=== PATIENT | male | born 1940 | race Caucasian/White ===

== ENCOUNTER → 2017-09-27 | Outpatient (CLI) | payer OTHER ==
[~2017-09-27] MED LIST: ATEN50 PO; Augmentin 875-1 EACH PO; HYDACE5 PO; LEVE500 PO; LORA1 PO; META800 PO; NAPR500 PO; OXYACE5T PO
[2017-09-27 16:51] LABS: BASOPHILS ABSOLUTE AUTO 0.02 K/mm3 (0.00-0.23); BASOPHILS PERCENT AUTO 0 % (0-2); EOSINOPHILS ABSOLUTE AUTO 0.09 K/mm3 (0.00-0.68); EOSINOPHILS PERCENT AUTO 1 % (0-6); Hemoglobin 17.3 g/dL (13.5-17.5); IMMATURE GRAN ABSOLUTE AUTO 0.02 K/mm3 (0.00-0.10); IMMATURE GRAN PERCENT AUTO 0 % (0-1); LYMPHOCYTES ABSOLUTE AUTO 1.05 K/mm3 (0.84-5.20); LYMPHOCYTES PERCENT AUTO 16 % (21-46); MONOCYTES ABSOLUTE AUTO 0.48 K/mm3 (0.16-1.47); MONOCYTES PERCENT AUTO 7 % (4-13); Mean Corpuscular HGB Conc 34.6 g/dL (31.5-36.5); Mean Corpuscular Volume 92 fL (80-100); Mean Platelet Volume 10.6 fL (9.1-12.4); NEUTROPHILS ABSOLUTE AUTO 4.82 K/mm3 (1.96-9.15); NEUTROPHILS PERCENT AUTO 74 % (41-73); Platelet Count 177 K/mm3 (150-400); RDW Standard Deviation 43.5 fL (35.1-46.3); Red Blood Cell Count 5.41 M/mm3 (4.30-5.90); White Blood Cell Count 6.48 K/mm3 (4.00-11.30)
[2017-09-27 17:12] LABS: Alanine Aminotransfer (ALT/SGP 20 U/L (12-78); Albumin, Blood 3.5 g/dL (3.4-5.0); Albumin/Globulin Ratio 0.9 (0.8-1.8); Alk Phos 63 U/L (50-136); Anion Gap 7 mmol/L (6-16); Aspartate Aminotrans (AST/SGOT 16 U/L (12-37); Bilirubin, Total 0.7 mg/dL (0.1-1.0); Blood Urea Nitrogen 12 mg/dL (8-24); CO2, Blood 29 mmol/L (21-32); Calcium, Blood 9.1 mg/dL (8.5-10.1); Chloride, Blood 104 mmol/L (98-108); Creatinine, Blood 0.86 mg/dL (0.60-1.20); Globulin, Blood 3.7 g/dL (2.2-4.0); Glomerular Filtration Rate >60 (60-); Glucose, Blood 91 mg/dL (70-99); Potassium, Blood 3.9 mmol/L (3.5-5.5); Sodium, Blood 140 mmol/L (136-145); Total Protein, Blood 7.2 g/dL (6.4-8.2)
== END ==
LOC: LAB 16:45
PROVIDERS: Physician Assistant
DX: R53.83 Other fatigue (principal)
CPT/HCPCS: 80053; 85025

== ENCOUNTER 2017-10-10 19:06 | Observation (INO) | payer OTHER ==
[~2017-10-10] VITALS: Ht 162.6 cm; Wt 62.0 kg
[~2017-10-10 19:06] MED LIST changes: -Augmentin 875-1 EACH PO; -LEVE500 PO
[2017-10-10 20:20] LABS: BASOPHILS ABSOLUTE AUTO 0.03 K/mm3 (0.00-0.23); BASOPHILS PERCENT AUTO 0 % (0-2); EOSINOPHILS ABSOLUTE AUTO 0.05 K/mm3 (0.00-0.68); EOSINOPHILS PERCENT AUTO 1 % (0-6); Hematocrit 47.1 % (37.0-53.0); Hemoglobin 15.8 g/dL (13.5-17.5); IMMATURE GRAN ABSOLUTE AUTO 0.03 K/mm3 (0.00-0.10); IMMATURE GRAN PERCENT AUTO 0 % (0-1); LYMPHOCYTES ABSOLUTE AUTO 0.84 K/mm3 (0.84-5.20); LYMPHOCYTES PERCENT AUTO 12 % (21-46); MONOCYTES ABSOLUTE AUTO 0.72 K/mm3 (0.16-1.47); MONOCYTES PERCENT AUTO 10 % (4-13); Mean Corpuscular HGB 30.7 pg (26.0-34.0); Mean Corpuscular HGB Conc 33.5 g/dL (31.5-36.5); Mean Corpuscular Volume 92 fL (80-100); Mean Platelet Volume 10.1 fL (9.1-12.4); NEUTROPHILS PERCENT AUTO 76 % (41-73); Platelet Count 166 K/mm3 (150-400); RDW Coefficient Variation 12.4 % (11.7-14.2); RDW Standard Deviation 41.9 fL (35.1-46.3); Red Blood Cell Count 5.14 M/mm3 (4.30-5.90); White Blood Cell Count 6.97 K/mm3 (4.00-11.30)
[2017-10-10] MEDS ORDERED: Augmentin 875-1 EACH PO (20:23)
[2017-10-10 20:43] LABS: Alanine Aminotransfer (ALT/SGP 23 U/L (12-78); Albumin/Globulin Ratio 0.8 (0.8-1.8); Alk Phos 69 U/L (50-136); Anion Gap 4 mmol/L (6-16); Aspartate Aminotrans (AST/SGOT 22 U/L (12-37); Bilirubin, Total 0.6 mg/dL (0.1-1.0); Blood Urea Nitrogen 14 mg/dL (8-24); Bun/Creatinine Ratio 17.4 (12.0-20.0); CO2, Blood 31 mmol/L (21-32); Calcium, Blood 8.6 mg/dL (8.5-10.1); Chloride, Blood 106 mmol/L (98-108); Creatinine, Blood 0.81 mg/dL (0.60-1.20); Ethanol (Alcohol), Blood, Med <3 mg/dL; Globulin, Blood 3.7 g/dL (2.2-4.0); Glomerular Filtration Rate >60 (60-); Glucose, Blood 93 mg/dL (70-99); Magnesium, Blood 2.2 mg/dL (1.6-2.4); Potassium, Blood 4.4 mmol/L (3.5-5.5); Sodium, Blood 141 mmol/L (136-145); Total Protein, Blood 6.7 g/dL (6.4-8.2); Troponin I <0.015 ng/mL (0.000-0.040)
[2017-10-11 06:48] LABS: BASOPHILS ABSOLUTE AUTO 0.02 K/mm3 (0.00-0.23); BASOPHILS PERCENT AUTO 0 % (0-2); EOSINOPHILS ABSOLUTE AUTO 0.08 K/mm3 (0.00-0.68); EOSINOPHILS PERCENT AUTO 1 % (0-6); Hematocrit 43.5 % (37.0-53.0); Hemoglobin 14.6 g/dL (13.5-17.5); IMMATURE GRAN ABSOLUTE AUTO 0.02 K/mm3 (0.00-0.10); IMMATURE GRAN PERCENT AUTO 0 % (0-1); LYMPHOCYTES ABSOLUTE AUTO 0.92 K/mm3 (0.84-5.20); LYMPHOCYTES PERCENT AUTO 16 % (21-46); MONOCYTES ABSOLUTE AUTO 0.68 K/mm3 (0.16-1.47); MONOCYTES PERCENT AUTO 12 % (4-13); Mean Corpuscular HGB 30.9 pg (26.0-34.0); Mean Corpuscular HGB Conc 33.6 g/dL (31.5-36.5); Mean Corpuscular Volume 92 fL (80-100); Mean Platelet Volume 10.3 fL (9.1-12.4); NEUTROPHILS ABSOLUTE AUTO 4.21 K/mm3 (1.96-9.15); NEUTROPHILS PERCENT AUTO 71 % (41-73); Platelet Count 161 K/mm3 (150-400); RDW Coefficient Variation 12.4 % (11.7-14.2); RDW Standard Deviation 42.2 fL (35.1-46.3); Red Blood Cell Count 4.72 M/mm3 (4.30-5.90); White Blood Cell Count 5.93 K/mm3 (4.00-11.30)
[2017-10-11 07:15] LABS: Alanine Aminotransfer (ALT/SGP 18 U/L (12-78); Albumin, Blood 2.6 g/dL (3.4-5.0); Albumin/Globulin Ratio 0.8 (0.8-1.8); Alk Phos 57 U/L (50-136); Anion Gap 5 mmol/L (6-16); Aspartate Aminotrans (AST/SGOT 13 U/L (12-37); Bilirubin, Total 0.5 mg/dL (0.1-1.0); Blood Urea Nitrogen 16 mg/dL (8-24); Bun/Creatinine Ratio 17.6 (12.0-20.0); CO2, Blood 30 mmol/L (21-32); Calcium, Blood 8.6 mg/dL (8.5-10.1); Chloride, Blood 108 mmol/L (98-108); Creatinine, Blood 0.91 mg/dL (0.60-1.20); Globulin, Blood 3.2 g/dL (2.2-4.0); Glomerular Filtration Rate >60 (60-); Glucose, Blood 93 mg/dL (70-99); Potassium, Blood 3.6 mmol/L (3.5-5.5); Sodium, Blood 143 mmol/L (136-145); Total Protein, Blood 5.8 g/dL (6.4-8.2)
[2017-10-11 13:58] LABS: Source, Urine Clean Catch
[2017-10-11 14:20] LABS: Appearance, Urine Clear (Clear); Bilirubin, Urine Neg (Neg); Blood, Urine Neg (Neg); Color, Urine Yellow (P-Yellow); Glucose Qualitative, Urine Neg (Neg); Ketones, Urine Neg (Neg); Leukocyte Esterase, Urine 1+ (Neg); Nitrite, Urine Neg (Neg); Protein, Urine Neg (Neg); Urobilinogen, Urine NORM (Normal); pH, Urine 6.5 (5.0-8.0)
[2017-10-11 14:35] LABS: Bacteria Not Seen /hpf; Red Blood Cells, Urine Not Seen /hpf (0-2); Squamous Epithelial Cells Rare /hpf (Few); White Blood Cells, Urine 0-2 /hpf (0-5)
[2017-10-11 15:18] LABS: U Amphetamine Screen Not Detected; U Barbituate Screen Not Detected; U Benzodiazapine Screen DETECTED; U Buprenorphine Screen Not Detected; U Cannabinoids Screen Not Detected; U Cocaine Screen Not Detected; U Methadone Screen Not Detected; U Methamphetamine Screen Not Detected; U Opiates Screen Not Detected; U Oxycodone Screen Not Detected; U Phencyclidine Screen Not Detected; U Propoxyphene Screen Not Detected
[2017-10-12] MEDS ORDERED: LEVE500 PO (12:28)
== END 2017-10-12 13:45 | disposition home or self-care (01) ==
LOC: ER 19:06 → MEDS 19:07 → ER 21:49 → MEDS 21:49 → ER 10-11 13:40 → MEDS 10-11 14:13 → ENPENDDIS 10-12 11:00 → MEDS 10-12 13:45
PROVIDERS: Emergency Medicine; Internal Medicine
DX: F10.239 Alcohol dependence with withdrawal, unspecified (principal); G40.501 Epileptic seizures related to external causes, not intractable, with status epilepticus; I10 Essential (primary) hypertension; K70.10 Alcoholic hepatitis without ascites; Z79.01 Long term (current) use of anticoagulants; Z87.891 Personal history of nicotine dependence
CPT/HCPCS: 36415; 70450; 71046; 80048; 80053; 81001; 83605; 83735; 84484; 85025; 87086; 93005; 93010; 96365; 96372; 97116; 97162; 99285; G0378; G0480; G8978; G8979; J1650; J1953; J2060; J7030

== ENCOUNTER 2018-09-24 15:28 | Inpatient (IN) | payer MEDICARE ==
[~2018-09-24] VITALS: Ht 162.6 cm; Wt 65.0 kg
[~2018-09-24 15:28] MED LIST changes: -ASPI81CH PO; -ATOR80 PO; -CLOP75 PO; -LISI5 PO; -METO25ER PO; -NITR.4SL SL
[2018-09-24] MEDS ORDERED: LEVE500 PO (17:01)
[2018-09-24 20:10] LABS: International Normalized Ratio 1.07
--- NOTE | 2018-09-24 21:25 | NUR ---
ASSUMED CARE PATIENT ARRIVED FROM ER VIA GURNEY AND AMBULATED TO PCU UNIT BED. PATIENTS PANTS REMOVED BY PATIENT AND SMELLED HEAVILY OF URINE- ALSO NOTED THAT PATIENTS WHITE UNDIES URINE STAINED. PATIENT LABILE, SMILING ONE MINUTE AND THEN UPSET ABOUT ADMIT QUESTIONS THE NEXTS. PATIENT VERBALIZES THAT HE IS IN THE HOSPITAL BECAUSE HE DOES NOT FEEL WELL - PATIENT IS NONE SPECIFIC ABOUT HIS HEALTH HISTORY AND CURRENT MEDICATIONS AND STATES THAT HE DOES NOT TAKE ANY MEDICATIONS DAILY. PATIENT DENIES ANY DRUG OR ALCOHOL USE AT THIS TIME AND STATES THE HE QUITE AWHILE AGO. PATIENT EDUCATED AND ETOH WITHDRAWL S/SX AND PATIENT DENIES ANY CONCERN. VSS. NO ACUTE DISTRESS NOTED. PATIENT TOOK ORAL MEDICATIONS PER EMAR WELL. WILL CONTINUE TO MONITOR.
[2018-09-25 01:30] LABS: Source, Urine Clean Catch
[2018-09-25 01:41] LABS: Blood, Urine Neg (Neg); Glucose Qualitative, Urine Neg (Neg); Ketones, Urine 4+ (Neg); Leukocyte Esterase, Urine 1+ (Neg); Nitrite, Urine Neg (Neg); Protein, Urine 1+ (Neg); Specific Gravity, Urine 1.025 (1.003-1.022); Urobilinogen, Urine 2+ (Normal)
[2018-09-25 01:46] LABS: Bilirubin, Urine 1+ (Neg); Color, Urine Amber (P-Yellow)
[2018-09-25 01:47] LABS: Appearance, Urine Hazy (Clear); Red Blood Cells, Urine Not Seen /hpf (0-2)
[2018-09-25 01:48] LABS: Amorphous Light (0-Heavy); Bacteria Few /hpf; Mucus Mod (0-Heavy); Squamous Epithelial Cells Rare /hpf (Few)
[2018-09-25 02:27] LABS: Hematocrit 31.4 % (37.0-53.0); Hemoglobin 10.2 g/dL (13.5-17.5); Mean Corpuscular HGB 29.5 pg (26.0-34.0); Mean Corpuscular HGB Conc 32.5 g/dL (31.5-36.5); Mean Corpuscular Volume 91 fL (80-100); Mean Platelet Volume 10.3 fL (9.1-12.4); Platelet Count 222 K/mm3 (150-400); RDW Coefficient Variation 13.6 % (11.7-14.2); RDW Standard Deviation 44.8 fL (35.1-46.3); Red Blood Cell Count 3.46 M/mm3 (4.30-5.90); White Blood Cell Count 7.12 K/mm3 (4.00-11.30)
[2018-09-25 02:31] LABS: Anion Gap 7 mmol/L (6-16); Blood Urea Nitrogen 21 mg/dL (8-24); Bun/Creatinine Ratio 24.3 (12.0-20.0); CO2, Blood 27 mmol/L (21-32); Chloride, Blood 106 mmol/L (98-108); Creatinine, Blood 0.86 mg/dL (0.60-1.20); Glomerular Filtration Rate >60 (60-); Glucose, Blood 87 mg/dL (70-99); Potassium, Blood 3.3 mmol/L (3.5-5.5); Sodium, Blood 140 mmol/L (136-145)
--- NOTE | 2018-09-25 05:34 | NUR ---
PCU NOC SHIFT SUMMARY PATIENT ALERT AND ORIENTED TO SELF AND LOCATION T/O SHIFT. PATIENT REMAINS CONFUSED AT TIMES TO CARE AND REASONING HE IS AT HOSPITAL. PATIENT SLEPT WELL T/O SHIFT AFTER ARRIVING FROM ER. RESP E/U ON ROOM AIR AND PATIENT REMAINS IN A FLUTTER IN THE 80'S - NO CHANGE PER BEVEL OPERATOR (ORIGINALLY THOUGHT NSR BUT IT HAS BEEN FLUTTER T/O SHIFT). NO ACUTE CHANGES NOTED, VSS. CALL LIGHT W/I REACH AND BED ALARM ON. DENIES ANY CHEST PAIN. HEPARIN GTT CONTINUES TO INFUSE PER EMAR AND PHARM. WILL CONTINUE TO MONITOR AND REPORT TO DAYSHIFT RN.
--- NOTE | 2018-09-25 07:17 | NUR ---
AM EKG - WITH CHANGES FROM ER EKG 8 HOURS AGO - AM EKG PERFORMED - NOTED ST CHANGES IN EKG AND EKG STATED 'STEMI'. DISCUSSED FINDINGS WITH WIND FARM ENGINEER EDU, ROTARY DRILLER HELPER LILLY WAS IN ICU SO SHOWED OLD EKG AND NEW EKG TO MD - SHE STATED THAT THERE WERE INDEED EKG CHANGES IN MULTIPLE LEADS AND THAT PROTOCOL WAS TO CALL THE INTERVENTIONALIST - STEMI MD ENTRY LEVEL ACCOUNT REPRESENTATIVE. THIS RN CALLED MD NDIAYE'S (STEMI CARDIO ENTRY LEVEL ACCOUNT REPRESENTATIVE) CELL PHONE, SHE STATED ASK FOR EKG'S TO BE TEXT TO HER (EKG TEXT TO HER). NO ORDERS GIVEN - PROVIDER NOTIFED THAT PATIENTS TROPONIN WAS AT 13.5 AND PATIENT WAS PAINFUL ALL OVER WITH NO SPECIFIC LOCATION DUE TO MENTATION AND ETOH HISTORY.
--- NOTE | 2018-09-25 07:23 | NUR ---
ARIEL OXYGEN, NEW IV AND NEW VITALS OBTAINED BY LEATHER TACKER. REGISTERED RADIOGRAPHER ALREADY IN PLACE.
--- NOTE | 2018-09-25 09:29 | NUR ---
ECHOCARDIOGRAM COMPLETED
--- NOTE | 2018-09-25 18:43 | NUR ---
END OF SHIFT PT HAS HAD NO CHANGES TO THE ASSESSMENT, PLAN IS TO MED MANGES AND PLACE IN SNIFF, PT IS FOLLOWING COMMANDS BUT IS DISTANCE
[2018-09-26 04:21] LABS: BASOPHILS ABSOLUTE AUTO 0.01 K/mm3 (0.00-0.23); BASOPHILS PERCENT AUTO 0 % (0-2); EOSINOPHILS ABSOLUTE AUTO 0.06 K/mm3 (0.00-0.68); EOSINOPHILS PERCENT AUTO 1 % (0-6); Hemoglobin 11.2 g/dL (13.5-17.5); IMMATURE GRAN ABSOLUTE AUTO 0.02 K/mm3 (0.00-0.10); IMMATURE GRAN PERCENT AUTO 0 % (0-1); LYMPHOCYTES PERCENT AUTO 13 % (21-46); MONOCYTES ABSOLUTE AUTO 0.53 K/mm3 (0.16-1.47); MONOCYTES PERCENT AUTO 9 % (4-13); Mean Corpuscular HGB 29.2 pg (26.0-34.0); Mean Corpuscular Volume 91 fL (80-100); Mean Platelet Volume 10.1 fL (9.1-12.4); NEUTROPHILS ABSOLUTE AUTO 4.53 K/mm3 (1.96-9.15); NEUTROPHILS PERCENT AUTO 76 % (41-73); Platelet Count 257 K/mm3 (150-400); RDW Coefficient Variation 13.5 % (11.7-14.2); RDW Standard Deviation 45.6 fL (35.1-46.3); Red Blood Cell Count 3.84 M/mm3 (4.30-5.90); White Blood Cell Count 5.95 K/mm3 (4.00-11.30)
[2018-09-26 04:48] LABS: Anion Gap 6 mmol/L (6-16); Blood Urea Nitrogen 19 mg/dL (8-24); Bun/Creatinine Ratio 22.7 (12.0-20.0); CO2, Blood 27 mmol/L (21-32); Calcium, Blood 8.4 mg/dL (8.5-10.1); Chloride, Blood 105 mmol/L (98-108); Creatinine, Blood 0.84 mg/dL (0.60-1.20); Glomerular Filtration Rate >60 (60-); Glucose, Blood 95 mg/dL (70-99); Potassium, Blood 3.3 mmol/L (3.5-5.5); Sodium, Blood 138 mmol/L (136-145)
--- NOTE | 2018-09-26 04:55 | NUR ---
PCU NOC SHIFT SUMMARY PATIENT ALERT AND ORIENTED TO SELF AND LOCATION T/O SHIFT - PATIENT CONFUSED TO MEDICAL HISTORY. PATIENT REPORTS ABD PAIN THAT COMES AND GOES BUT DENIES NEED FOR ANY MEDICAL INTERVENTION. PATIENT RESTED WELL T/O SHIFT. VSS - NORMAL SINUS RHYTHM IN THE 70-80'S NOTED. L/S CLEAR AND RESP E/U ON ROOM AIR. PATIENT UP AND AMBULATED TO BEDSIDE COMMODE AND HAD HARD BOWEL MOVEMENT. NO ACUTE DISTRESS NOTED; WILL CONTINUE TO MONITOR AND REPORT TO DAYSHIFT RN. CALL LIGHT W/I REACH AND BED ALARM ON.
--- NOTE | 2018-09-26 20:10 | NUR ---
END OF SHIFT PT HAS HAD SOME CONFUSION, PT EDUCATED ON FALL RISKS AND CALL LIGHT PROCEDURES, PT STILL IS QUICK TO JUMP OUT OF BED, VSS, PT IN NO PAIN, PT ABLE TO EAT
--- NOTE | 2018-09-26 21:02 | NUR ---
PCU DAYSHIFT ASSUMED CARE OF PT APPROX. 1900. PT ALERT AND ORIENTED TO SELF AND SURROUNDINGS AND ABLE TO FOLLOW DIRECTIONS. ASSESSMENT COMPLETED AND VITAL SIGNS STABLE. PT ABLE TO AMBULATE TO BATHROOM SBA AND TOELRATED WELL. PT LABILE WITH FLAT AFFECT AND DOES NOT SAY MUCH ALTHOUGH ABLE TO ANSWER QUESTIONS WHEN ASKED. PT IN BED AT THIS TIME, BED IN LOW POSITION, BED ALARM ON, CALL LIGHT IN REACH AND PT DENIES ANY NEEDS AT THIS TIME.
--- NOTE | 2018-09-27 05:26 | NUR ---
SHIFT SUMMARY PT PLEASANT AND COOPERATIVE. PT REMAINS ALERT AND ORIENTED TO SELF, AND SURROUNDINGS AND REMAINS ABLE TO FOLLOW DIRECTIONS. PT VITAL SIGNS REMAIN STABLE. PT ABLE TO REST FOR MOST OF SHIFT. PT ABLE TO AMBULATE TO BATHROOM NEEDED AND TOLERATED WELL. BED IN LOW POSITION, BED ALARM ON, CALL LIGHT IN REACH AND PT DENIES ANY NEEDS AT THIS TIME. WILL CONTINUE TO MONITOR UNTIL HANDOFF TO DAYSHIFT RN.
--- NOTE | 2018-09-27 10:03 | NUR ---
Francis is able to correctly state his name, birthdate, and that he is in the hospital. States "it's been so long" that he cannot even venture a guess as to the date today. He says that he lives in [place], alone, and that he has neighbors who help him with groceries. He cannot tell me his address. When asked which pharmacy he uses to get his medications, he says that "they usually come by mail". I asked which pharmacy we could use at discharge for new precriptions, and he says he doesn't know. States that he doesn't want or need anything right now. Affect is flat, withdrawn. He is non communicative except when asked questions, and offers no conversation.
--- NOTE | 2018-09-27 11:21 | NUR ---
The pt alerted me with his exit from the bed, which set the bed alarm off. He was walking to the bathroom to void. Assisted him with this as just a standby assist, due to his confusion and presumed history of falls, as evidenced by large bruise and abrasion on his right flank and bruise on left hip. He states he doesn't know if he has fallen at home. He looked somewhat disoriented and twice showed signs of agitation, which quickly resolved. He only wants to lie in bed and sleep today. Declined any shower or other hygeine care this morning.
--- NOTE | 2018-09-27 12:54 | NUR ---
Alerted to pt's exit of bed by alarm. He appeared irritated by the teller coordinator cord which was wrapped around his arm. He becomes agitated when assistance is provided. Ambulatory to the bathroom to void. Afterwards asked the pt if he would like to eat lunch now. No verbal response. Asked if he would like to sit on the edge of the bed, asked if he was hungry. No verbal response. He got back in bed on his own, but did begin to eat when the food tray was placed in front of him. Bed alarm reset.
--- NOTE | 2018-09-27 17:31 | NUR ---
SUMMARY Quiet, confused but conversant patient with limited verbal response, which seems to be dependent upon his motivation today. Ambulatory to the bathroom and appears to have no difficulty with this although he does appear to be a little weak and unsteady. Vital signs stable, normal sinus rhythm per telemetry, without any events past 24 hours. Denies pain, discomfort, dyspnea all day today. The pt's aunt, Yamilet, was here today. She states that she is 86 years old and although the patient has been living with her for the past 9 years, she states that she can no longer take care of him. Presumably, the patient will require placement due to his lack of cognitive functioning.
--- NOTE | 2018-09-27 23:06 | NUR ---
ASSUMED CARE AT 1915 AND AWARE OF SELF AND OFFERS ABSOLUTELY NO CONVERSATION OR EXPRESSING OF ANY NEEDS VOLUNTARILY. REVIEWED BED ALARM AND PER FLAT AFFECT AND MINIMAL RESPONSE , SEEMS TO NOT HAVE ANY INTEREST OR DESIRE TO DISCUSS THIS PROTOCOL. EACH QUESTION ASKED , HE SAYS "NO I AM ALRIGHT." FREQ ASKED ABOUT NEED TO VOID AND REVIEWED STAFF WILL BE ASSISTING HIM AND THE ALARM WOULD GO OFF FOR STAFF ALERT. INDIFFERENT AND SAME FLAT AFFECT.
--- NOTE | 2018-09-28 01:53 | NUR ---
REPORT GIVEN TO EAGLE VEGA TO BE TRANSFERED TO [facility] VIA W/C. INFORMED PT. TR TO W/C AND NOTED THE BRUISE ON LT HIP AND BRUISE ON RT WAIST AREA. DENIES ANY DISCOMFORT. APPEARS AWARE AND EXPRESSES UNDERSTANDING ABOUT MOVE AND NEED FOR BED ALARM ON MED FLOOR ALSO
--- NOTE | 2018-09-28 03:03 | NUR ---
09/28/18 0210 RECEIVED PT FROM PCU VIA W/C WITH FISH CHECKER. ASSISTED TO BED. PT ALERT X 1. REORIENTED TO SURROUNDINGS AND CALL SYSTEM. INSTRUCTED TO CALL BEFORE GETTING UP OUT OF BED FOR NURSES TO ASSIST HIM TO THE BATHROOM. VITALS STABLE. TV TURNED ON PER PT REQUEST. RESTING IN BED WITHOUT ANY S/S OR DISCOMFORT. HEART MONITOR AT "SR AT 81 WITH PVCS."
--- NOTE | 2018-09-28 06:53 | NUR ---
09/28/18 0600 CONTINUES TO BE IMPULSIVE WHEN WANTING TO GO TO THE BATHROOM TO VOID. BED ALARM ON AND REMINDED HIM TO CALL FIRST. LOOKS AT RN BUT DOES NOT MAKE COMMENT. UNEVENFUL NIGHT.
--- NOTE | 2018-09-28 13:59 | NUR ---
Called by physician to meet with family. Pt keeps eyes covers nods no to everything. Family states pt was talking more yesterday. He does not talk much and says no to almost everything. 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 The patient has a history of seizures, he cannot read or write. He will nod yes when asked if he understands something and signs with an X. His Sister in law took him in but she is in her 80's she was compassionate in her care and interaction. However, she was repetative and forgetfull. She is aware that she needs to come up with a plan for her care as she is becoming more frail. They both agree that hospice is the best choice for his needs. They state he has been sleeping more and eating less and has been declining. His MOHAMUD stated she signed a contact form and POA at [facility]. The cousin is hesitant to hernandez control as POA. difficult to explain to him he is resistant to the responsibilty and may fear some financial responsibilty. they state He lamonte have had one from the [facility] or [facility] at one time. Explained need for placement and they state they will visit. Review of conversation with katlin edmonds and that they have no preferance of hospice company. His cousin is Ar Natarajan [phone]. Will review with phsycian pt may be better with caurrent care level of care then transition to comfort carea or hospice. Pt will need frequent assessment for non verbal s/s of pain. Will put in dietary consult to help with food. Pt kps score 30%, pt EF 25 to 30%.
--- NOTE | 2018-09-28 18:26 | NUR ---
SHIFT SUMMARY THE PATIENT PRESENTED THIS MORNING WITH PAOC WNL, A&O TO SELF AND SOME SURROUNDINGS, AND WITH LUNGS THAT WERE CLEAR, BUT DIM AT THE BASES. THE PATIENT FAMILY WAS IN TO VISIT TODAY AND TALKED TO DR. WHEATLEY AND TO A PATIENT CARE COORNATOR ABOUT THE NEXT STEP FOR THE PATIENT. THE PATIENT SLEPT MOST OF THE SHIFT AND ONLY GOT OUT OF BED TWICE WITHOUT CALLING. THE PATIENT IS SLEPPIMG AT THIS TIME, WILL CONTINUE TO MONITOR.
--- NOTE | 2018-09-29 04:32 | NUR ---
*SHIFT SUMMARY* PATIENT IS ALERT TO SELF AND FOLLOWS COMMANDS. PATIENT GETS OUT OF BED WITHOUT CALLING FOR ASSISTANCE. PATIENT FOUND WANDERING DAVIS INTO ANOTHER PATIENTS ROOM THIS EVENING. WHEN ASKED WHERE HE WAS GOING HE STATED HE DIDN'T KNOW. THIS RN ASSISTED PATIENT BACK TO HIS ROOM. PATIENT IS SBA TO BATHROOM AND IS CONTINENT. NO NEW CHANGES TO PATIENT'S STATUS. PATIENT IS ON TELE HEART RATE NSR IN THE 60'S.
--- NOTE | 2018-09-29 14:30 | NUR ---
Patient gave permission to student nurse to provide care on 09/30/2017.
--- NOTE | 2018-09-29 15:10 | NUR ---
Pt gave permission to student nurse to provide care on 09/30/18.
--- NOTE | 2018-09-30 04:54 | NUR ---
*SHIFT SUMMARY* PATIENT IS ALERT AND CONFUSED AT TIMES. PATIENT IS CONTINENT USES THE BATHROOM. STEADY GAIT. DOES NOT USE CALL LIGHT APPROPRIATELY. PATIENT IS ON TELE, NSR WITH PVC'S RATE IN 90'S PER SHIPPING CLERK. NO NEW CHANGES TO PATIENT STATUS. PATIENT SLEPT MOST OF THE NIGHT. CALL LIGHT IN REACH, BED LOWERED AND LOCKED.
--- NOTE | 2018-09-30 11:46 | NUR ---
PHYSICAN CALL INFORMED PHYSICAN, DR. WHEATLEY, THAT UNDER THE GUIDANCE OF SILVIA DELUNA PATIENT WAS GIVEN METOPROLOL 25 MG AND LISINPRIL 2.5 MG WAS HELD. AT TIME OF ADMINISTRATION BLOOD PRESSURE WAS 93/60 AND HEART RATE WAS 83. VITAL RECHECK WAS DONE AT 1053 BLOOD PRESSURE WAS 108/65 AND HR WAS 75. NO NEW ORDERS AT THIS TIME.
--- NOTE | 2018-09-30 15:51 | NUR ---
PATIENT GAVE SNEBARRY PERMISSION TO HELP PROVIDE CARE ON 10/01/18.
--- NOTE | 2018-09-30 18:32 | NUR ---
SHIFT SUMMARY PT HAS HAD NO ACUTE CHANGES THIS SHIFT, NO COMPLAINTS OF ANY KIND. PT HAS BEEN AMBULATING INDEP IN HALLWAY & IS BEDRESTING AT THIS TIME, WILL CONT TO MONITOR UNTIL REPORT GIVEN TO BRANDON RN.
--- NOTE | 2018-10-01 05:29 | NUR ---
SHIFT SUMMARY PT CONFUSED AND TRIED TO GET INTO SOMEONE ELSE'S ROOM MULTIPLE TIMES. REORIENTED AND REDIRECTED NEEDED. DENIES PAIN, N/V,A ND SOB. AMBULATES INDEPENDENTLY. SLEPT ON AND OFF. WILL CONTINUE TO MONITOR. PT AWAITING PLACEMENT.
[2018-10-01] MEDS ORDERED: ASPI81CH PO (16:01)
[2018-10-01] MEDS ORDERED: ATOR80 PO (16:02)
[2018-10-01] MEDS ORDERED: CLOP75 PO (16:02)
[2018-10-01] MEDS ORDERED: LEVE500 PO (16:03)
[2018-10-01] MEDS ORDERED: LISI5 PO (16:04)
[2018-10-01] MEDS ORDERED: METO25ER PO (16:05)
[2018-10-01] MEDS ORDERED: NITR.4SL SL (16:07)
--- NOTE | 2018-10-01 16:30 | NUR ---
DISCHARGE THIS RN EXPLAINED DISCHARGE INSTRUCTIONS AND MEDICATIONS TO PT'S AUNT (POA). SHE REPORTS SHE UNDERSTANDS. IV REMOVED WITHOUT DIFFICULTY. PT TRANSFERRED TO PRIVATE VEHICLE VIA WHEELCHAIR PUSHED BY [employer]. PT'S BELONGINGS WITH PT'S FAMILY.
== END 2018-10-01 16:28 | disposition home or self-care (01) | DRG 280 ==
LOC: ER 15:28 → MEDS 17:20 → PCU 17:20 → MEDS 09-28 02:03
PROVIDERS: Nurse Practitioner Acute Care; ADMIT Hospitalist
DX: I21.19 ST elevation (STEMI) myocardial infarction involving other coronary artery of inferior wall (principal); I50.21 Acute systolic (congestive) heart failure; Z87.891 Personal history of nicotine dependence; K70.10 Alcoholic hepatitis without ascites; I25.5 Ischemic cardiomyopathy; G40.909 Epilepsy, unspecified, not intractable, without status epilepticus; F01.50 Vascular dementia, unspecified severity, without behavioral disturbance, psychotic disturbance, mood disturbance, and anxiety; Z79.82 Long term (current) use of aspirin; Z23 Encounter for immunization
CPT/HCPCS: 36415; 71046; 80048; 80053; 81001; 83735; 83880; 84484; 85025; 85027; 85610; 85730; 87086; 90686; 93005; 93010; 93306; 96374; 99285-25; G0008; J1644; J2250; J3010

== ENCOUNTER → 2018-09-24 | Outpatient (CLI) | payer MEDICARE ==
[~2018-09-24] MED LIST changes: +ASPI81CH PO; +ATOR80 PO; +Augmentin 875-1 EACH PO; +CLOP75 PO; +LEVE500 PO; +LISI5 PO; +METO25ER PO; +NITR.4SL SL
[2018-09-24 13:13] LABS: BASOPHILS ABSOLUTE AUTO 0.03 K/mm3 (0.00-0.23); BASOPHILS PERCENT AUTO 0 % (0-2); EOSINOPHILS ABSOLUTE AUTO 0.06 K/mm3 (0.00-0.68); EOSINOPHILS PERCENT AUTO 1 % (0-6); Hematocrit 37.7 % (37.0-53.0); Hemoglobin 12.3 g/dL (13.5-17.5); IMMATURE GRAN ABSOLUTE AUTO 0.03 K/mm3 (0.00-0.10); IMMATURE GRAN PERCENT AUTO 0 % (0-1); LYMPHOCYTES ABSOLUTE AUTO 0.78 K/mm3 (0.84-5.20); LYMPHOCYTES PERCENT AUTO 10 % (21-46); MONOCYTES ABSOLUTE AUTO 0.49 K/mm3 (0.16-1.47); MONOCYTES PERCENT AUTO 6 % (4-13); Mean Corpuscular HGB 29.3 pg (26.0-34.0); Mean Corpuscular HGB Conc 32.6 g/dL (31.5-36.5); Mean Corpuscular Volume 90 fL (80-100); Mean Platelet Volume 10.4 fL (9.1-12.4); NEUTROPHILS ABSOLUTE AUTO 6.71 K/mm3 (1.96-9.15); NEUTROPHILS PERCENT AUTO 83 % (41-73); Platelet Count 282 K/mm3 (150-400); RDW Coefficient Variation 13.8 % (11.7-14.2); RDW Standard Deviation 44.7 fL (35.1-46.3)
[2018-09-24 13:24] LABS: Alanine Aminotransfer (ALT/SGP 59 U/L (12-78); Albumin, Blood 2.5 g/dL (3.4-5.0); Albumin/Globulin Ratio 0.5 (0.8-1.8); Alk Phos 54 U/L (40-126); Anion Gap 13 mmol/L (6-16); Aspartate Aminotrans (AST/SGOT 50 U/L (12-37); Bilirubin, Total 0.7 mg/dL (0.1-1.0); Blood Urea Nitrogen 22 mg/dL (8-24); Bun/Creatinine Ratio 20.2 (12.0-20.0); CO2, Blood 26 mmol/L (21-32); Calcium, Blood 9.2 mg/dL (8.5-10.1); Chloride, Blood 103 mmol/L (98-108); Creatinine, Blood 1.09 mg/dL (0.60-1.20); Globulin, Blood 4.8 g/dL (2.2-4.0); Glomerular Filtration Rate >60 (60-); Glucose, Blood 96 mg/dL (70-99); Potassium, Blood 3.6 mmol/L (3.5-5.5); Sodium, Blood 142 mmol/L (136-145); Total Protein, Blood 7.3 g/dL (6.4-8.2)
[2018-09-24 15:00] LABS: Troponin I 16.218 ng/mL (0.000-0.040)
== END | disposition home or self-care (01) ==
LOC: LAB EV 13:04 → LAB SHORT 13:04
PROVIDERS: Physician Assistant
DX: R09.02 Hypoxemia (principal); I50.9 Heart failure, unspecified
CPT/HCPCS: 80053; 83880; 84484; 85025